=== PATIENT | male | born 1955 | race Two or more races ===

== ENCOUNTER 2016-06-16 02:01 | Emergency (ER) | payer MEDICARE, OTHER ==
--- NOTE | ~2016-06-16 | CT2 ---
[facility] A Service of [facility] RADIOLOGY TEXT RESULTS PATIENT: SEBASTIAN NOEL LOCATION: [facility] : 57 UNIT #: [id number] AGE: [address]: Jack Frank MD SEX: M ORDER DR: [id number] [facility] [address] [place], [place] [address] [id number] MR#: [id number] Acc #: [id number] NAME: SEBASTIAN NOEL : 1955 SEX: M STUDY DATE/TIME: 06/16/2016 7:51 UNIT: [facility] ROOM: STUDY DESCRIPTION: CT Abd and Pelv W Cont Attending Physician: Jack Frank M.D. Ordering Physician: Jack Frank M.D. Primary Care Physician: Primary Care Physician No MEDICAL IMAGING REPORT This report is preliminary unless electronic signature is present EXAM CT of the abdomen and pelvis, 06/16 HISTORY Groin pain with constipation for 2 months with difficulty urinating as well. Pain is 8/10. TECHNIQUE Axial images were obtained through the abdomen and pelvis following IV contrast administration. Multiplanar reformats were obtained. This CT exam was performed with one or more of the following radiation dose reduction techniques: automatic exposure control, adjustment of mA and/or kV according to patient size, and iterative reconstruction. COMPARISON 01/30/2014 FINDINGS ABDOMEN: There are consolidations in the lower lobes, probably due to some atelectasis, but pneumonia should be excluded clinically. The gallbladder is contracted and poorly evaluated. Solid organs are normal. There is no adenopathy or free fluid. The GI tract is within normal limits. No bowel obstruction is seen. The patient does have redundant sigmoid colon which extends into the abdomen. PELVIS: The urinary bladder is distended. The Alcantara catheter balloon is inflated within the prostate, not within the bladder lumen. No free fluid is seen. 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 The GI tract is within normal limits. IMPRESSION [facility] A Service of [facility] RADIOLOGY TEXT RESULTS PATIENT: SEBASTIAN NOEL LOCATION: [facility] : 57 UNIT #: [id number] AGE: [address]: Jack Frank MD SEX: M ORDER DR: 1. The GI tract appears within normal limits. Note is made of redundant sigmoid colon. 2. The Alcantara balloon is inflated in the prostate gland. There is marked distension of the urinary bladder, but there is no hydronephrosis. 3. Infiltrate or atelectasis in both lower lobes. 4. The gallbladder is contracted and therefore not well evaluated by CT. 5. No evidence of an inguinal hernia on either side. STAT * RESULT Dictated by... Jonathan Gonzalez Jr., M.D. THIS IS AN ELECTRONICALLY VERIFIED REPORT Jonathan Gonzalez Jr., M.D. at 06/16/2016 10:01 AM SHEMAR/daisy TD: 06/16/2016 08:47 JOB #: [id number] MEDICAL IMAGING REPORT Page 1 of 1 COPY
[2016-06-16 05:24] LABS: BASOPHIL% 0.3 % (0-2.5); EOSINOPHIL# 0.2 X10e3 (0-0.7); EOSINOPHIL% 1.3 % (0.0-7.0); HEMATOCRIT 45.1 % (38.0-50.0); HEMOGLOBIN 14.6 gm/dL (13.0-16.0); LYMPHOCYTE# 2.2 X10e3 (1.0-3.5); LYMPHOCYTE% 18.5 % (17.0-45.0); MEAN CELL VOLUME 86.7 FL (83-96); MEAN CORPUSCULAR HGB CONC 32.4 g/dL (30-36); MEAN PLATELET VOLUME 7.8 FL (6.5-11.5); MONOCYTE# 0.6 X10e3 (0-1.0); NEUTROPHIL# 8.8 X10e3 (1.5-7.1); NEUTROPHIL% 74.9 % (40-75); PLATELET COUNT 223 X10e3 (140-420); RED CELL DISTRIBUTION WIDTH 15.4 % (11.0-15.5); WHITE BLOOD COUNT 11.7 X10e3 (4.0-10.5)
[2016-06-16 05:31] LABS: DIFF IND NO
[2016-06-16 05:57] LABS: ALBUMIN SERUM 4.5 g/dL (3.5-5.0); BILIRUBIN,TOTAL 0.6 mg/dL (0.2-2.0); BUN/CREATININE RATIO 7.14; CALCIUM SERUM 9.3 mg/dL (8.4-10.2); CREATININE SERUM 0.7 mg/dL (0.6-1.4); GLOM FILT RATE Estimated 103.3 mL/min (>60)
[2016-06-16 06:43] LABS: URINE SOURCE CLEAN CATCH
[2016-06-16 06:54] LABS: URINE APPEARANCE CLOUDY; URINE BILIRUBIN NEG (NEG); URINE BLOOD 1+ (NEG); URINE COLOR YELLOW; URINE GLUCOSE NEG (NEG); URINE KETONE NEG (NEG); URINE LEUKOCYTE ESTERASE NEG (NEG); URINE NITRATE NEG (NEG); URINE PROTEIN NEG (NEG); URINE SPECIFIC GRAVITY 1.012 (1.003-1.035); URINE UROBILINOGEN 0.2 MG/DL (NEG)
[2016-06-16 06:57] LABS: URINE BACTERIA AUWI NEG (NEGATIVE)
[2016-06-16 07:11] LABS: CULTURE INDICATED? NO
[2016-06-16 07:12] LABS: URINE SQUAMOUS EPITHELIAL CELL FEW /[HPF]; URINE TRANSITIONAL EPI CELLS FEW /[HPF]
== END 2016-06-16 11:30 | disposition home or self-care (01) ==
LOC: CED 02:01
PROVIDERS: Emergency Medicine
DX: R33.9 Retention of urine, unspecified (principal); G40.909 Epilepsy, unspecified, not intractable, without status epilepticus; F17.200 Nicotine dependence, unspecified, uncomplicated; Z86.73 Personal history of transient ischemic attack (TIA), and cerebral infarction without residual deficits
CPT/HCPCS: 36415; 51702; 74177; 80053; 81003; 83690; 85025; 96360; 96361; 99284; Q9967